=== PATIENT | male | born 1990 | race Asian ===

== ENCOUNTER 2021-05-15 16:22 | Emergency (ER) | payer MEDICAID ==
[~2021-05-15] VITALS: Ht 167.6 cm; Wt 88.2 kg
[2021-05-15] MEDS ORDERED: IBUPROFEN 600 MG TABLET PO ONE (17:45)
[2021-05-15 19:53] VITALS: BP 119/71
== END 2021-05-15 20:19 | disposition home or self-care (01) ==
LOC: EMS 16:24
DX: M76.62 Achilles tendinitis, left leg (principal)
CPT/HCPCS: 99283

== ENCOUNTER 2021-05-21 16:19 | Emergency (ER) | payer MEDICAID ==
[~2021-05-21] VITALS: Ht 167.6 cm; Wt 88.6 kg
[2021-05-21 19:36] VITALS: BP 132/85
== END 2021-05-21 22:00 | disposition home or self-care (01) ==
LOC: EMS 16:24
DX: M10.9 Gout, unspecified (principal)
CPT/HCPCS: 84550; 99283

== ENCOUNTER 2021-05-25 17:55 | Emergency (ER) | payer MEDICAID ==
[~2021-05-25] VITALS: Ht 167.6 cm; Wt 88.6 kg
[2021-05-25] MEDS ORDERED: INDO-16 PO (18:05)
[2021-05-25 18:11] VITALS: BP 145/77
== END 2021-05-25 18:27 | disposition home or self-care (01) ==
LOC: EMS 17:57
DX: M10.9 Gout, unspecified (principal); Z79.899 Other long term (current) drug therapy
CPT/HCPCS: 99283